=== PATIENT | male | born 1990 | race Caucasian/White ===

== ENCOUNTER 2017-05-14 04:30 | Emergency (ER) | payer SELFPAY ==
[2017-05-14 04:31] VITALS: BP 173/88; PULSE 91; RESP 16; TEMP 36.6; O2SAT 100; BMI 34.3
--- NOTE | 2017-05-14 04:39 | RAD_ITS ---
STUDY: X-RAY - RIGHT HAND REASON FOR EXAM: Male, 27 years old. Swelling of right hand and wrist x3 days, no known injury. TECHNIQUE: 3 view(s) of the hand. COMPARISON: 07/31/2014 FINDINGS: Normal radiocarpal articulation. Normal distal radioulnar joint. Normal visualized carpal bones. Normal carpal articulations Normal carpometacarpal articulation of the thumb. Normal second through fifth carpometacarpal joints. Deformity along the previously seen displaced fracture of the fourth and fifth metacarpals with adjacent of tissue swelling and soft tissue calcification, stable since previous examination, degenerative changes of the fifth carpometacarpal joint. Normal metacarpophalangeal joint of the thumb. Normal interphalangeal joint of the thumb. Normal proximal and distal phalanges of the thumb. Remote first distal tuft fracture. Normal metacarpophalangeal joints of the second through fifth fingers. Normal proximal and distal interphalangeal joints of the second through fifth fingers. Normal phalanges of the second through fifth fingers. RAD/Hand Min 3 Views IMPRESSION: Stable healed fracture deformities of the fourth and fifth proximal metacarpal with adjacent soft tissue swelling and calcification. Degenerative change of the fifth carpometacarpal joint. There is no acute displaced fracture or dislocation. Electronically Signed: Basia Marina MD at 5:09 EST , Service support ,
--- NOTE | 2017-05-14 04:39 | RAD_ITS ---
STUDY: X-RAY - RIGHT WRIST REASON FOR EXAM: Male, 27 years old. Swelling of right hand and wrist x3 days, no known injury. TECHNIQUE: 3 view(s) of the wrist were obtained. COMPARISON: Right hand 07/31/2014 FINDINGS: Normal visualized distal radius and ulna. Normal radiocarpal articulation. Normal distal radioulnar articulation. Normal carpal bones. Normal carpal articulations. Normal carpometacarpal articulation of the thumb. Normal second through third carpometacarpal articulations. Fracture deformity of the base of the fourth and fifth metacarpal bones at the site of previous acute displaced fractures with degenerative changes along the fifth carpometacarpal space. Stable soft tissue calcifications. Stable soft tissue prominence. RAD/Wrist min 3 Views IMPRESSION: Remote healed displaced fractures fourth and fifth metacarpal with degenerative changes carpometacarpal joints. Soft tissue calcification and prominence appears stable since prior exam. Electronically Signed: Basia Marina MD at 5:07 EST , Service support ,
--- NOTE | 2017-05-14 04:41 | ED.VISSUMM ---
- ER Visit Summary Date of Service: 05/14/17 Chief Complaint: [Right hand and wrist pain] History of Present Illness: The patient is a 27 M [who presents the emergency department with right hand and wrist pain. He was remote history of a fracture of his fifth fourth and second metatarsals status post pinning he had tendon injury as well. He has constant swelling because of the tendons on the dorsum of his hand. They have been moving and he has been using his hands a lot over the last 3 days last night they worked extensively on moving a futon. He has had increasing pain and swelling the dorsum of his hand and wrist. No direct injury that he is aware of. He is new to [place] he does not have any other medical problems he does smoke no allergies] Physical Examination: [] Pressure 173/88 other vitals within normal limits Rotation of the right upper extremity reveals swelling over the dorsolateral portion of the hand there is no overlying erythema he has no tenderness to palpation in that area and states that is chronic, he does have mild swelling diffusely of the dorsum of the wrist with no overlying erythema he has some pain with range of motion of the wrist and some mild tenderness to palpation over the dorsum of the wrist, he does have weakness with extension of the third fourth and fifth fingers he states it feels normal to him Test Results: [] Emergency Department Course and Treatment: [X-rays show old fractures but no acute fracture. Patient does have degenerative arthritis of the carpometacarpal joint. That is where the patient's pain is. I think he has aggravated the joints by repetitive stressful movement. He will ice be placed in a cockup wrist splint take anti-inflammatories rest and follow-up with Dr. Dockery as needed as an outpatient.] Treatment Plan: [] Disposition: Discharge [] Impression: [Right wrist pain] This note was generated with [employer] dictation software. It may contain incorrect words, spelling, and punctuation that were not noted in review of the chart prior to signing ED Disposition - Plan for ED Patient: Chief Complaint: Upper Extremity Injury Referrals: Care Physician,No Primary [Primary Care Provider] -
--- NOTE | 2017-05-14 05:30 | ED.DEP ---
ED Disposition - Plan for ED Patient: Chief Complaint: Upper Extremity Injury Instructions: ED Degenerative Joint Disease Prescriptions: Ibuprofen 600 mg PO Q8H PRN PRN #20 tablet PRN Reason: Pain Referrals: Scot Stern MD [STAFF PHYSICIAN] - 10-14 Days if not better
[2017-05-14 05:42] VITALS: RESP 16
== END 2017-05-14 05:43 | disposition home or self-care (01) ==
LOC: ED 05:01
PROVIDERS: Emergency Provider Emergency Medicine
DX: M25.531 Pain in right wrist (principal); F17.200 Nicotine dependence, unspecified, uncomplicated
CPT/HCPCS: 73110; 73130; 99283